=== PATIENT | female | born 1960 ===

== ENCOUNTER → 2018-06-13 20:54 | Outpatient (REF) | payer OTHER, SELFPAY ==
[2018-06-13 21:32] LABS: Add Manual Diff / Slide Review NO; Basophils Absolute Auto 0 /uL (0-100); Basophils Percent Auto 0.6 % (0-2); Eosinophils Absolute Auto 100 /uL (0-450); Eosinophils Percent Auto 1.1 % (2-4); Hematocrit 35.8 % (36-46); Lymphocytes Absolute Auto 2000 /uL (1100-4500); Lymphocytes Percent Auto 27.7 % (25-40); Mean Corpuscular HGB Conc 33.5 % (30-36); Mean Corpuscular Hemoglobin 29.6 PG (26-34); Mean Corpuscular Volume 88.4 fL (80-100); Monocytes Absolute Auto 400 /uL (0-900); Monocytes Percent Auto 5.8 % (3-14); Neutrophils Absolute Auto 4800 /uL (1500-7000); Neutrophils Percent Auto 64.8 % (50-75); Platelet Count 294 X10^3/uL (150-400); Red Blood Cell Count 4.05 X10^6/uL (4.0-5.2); Red Cell Distribution Width 12.3 % (11.6-14.8); White Blood Cell Count 7.4 X10^3/uL (4.5-11.0)
[2018-06-13 21:48] LABS: Alanine Aminotransferase 29 IU/L (9-52); Albumin 4.2 g/dL (3.5-5.0); Albumin Globulin Ratio 1.4 (1.0-2.8); Alkaline Phosphatase 90 U/L (38-126); Aspartate Aminotransferase 26 IU/L (14-36); BUN Creatinine Ratio 26.3 (6-22); Bilirubin Total 0.1 mg/dL (0.2-1.3); Blood Urea Nitrogen 21 mg/dL (7-17); Calcium 9.6 mg/dL (8.4-10.2); Carbon Dioxide 32 mmol/L (22-32); Chloride 98 mmol/L (98-107); Cholesterol 181 mg/dL (140-199); Estimated Glomerular Filt Rate > 60.0 mL/min (>60); Globulin 2.9 g/dL (1.7-4.1); Glucose 89 mg/dL (70-100); HDL Cholesterol 46 mg/dL (40-60); HEMOLYSIS < 15 (0-50); LDL Cholesterol Calculated 90 mg/dL (<100); Sodium 138 mmol/L (137-145); Total Protein 7.1 g/dL (6.3-8.2); Triglycerides 223 mg/dL (35-150)
[2018-06-13 21:58] LABS: Hemoglobin A1C% w Est Avg Glu 5.3 % (4.0-6.0); Vitamin D 25 Hydroxy (D3) 34.7 ng/mL (30.0-100.0)
[2018-06-13 22:12] LABS: Thyroid Stimulating Hormone 2.25 uIU/mL (0.47-4.68)
[2018-06-18 16:36] LABS: 18 kD IgG Band Nonreactive; 23 kD IgG Band Reactive; 28 kD IgG Band Nonreactive; 30 kD IgG Band Nonreactive; 39 kD IgG Band Reactive; 41 kD IgG Bands Reactive; 45 kD IgG Band Nonreactive; 58 kD IgG Band Nonreactive; 66 kD IgG Band Nonreactive; 93 kD IgG Bands Nonreactive
== END ==
LOC: LAB 20:54
PROVIDERS: Visit Provider Family Medicine
DX: Z00.00 Encounter for general adult medical examination without abnormal findings (principal); Z13.1 Encounter for screening for diabetes mellitus; Z13.220 Encounter for screening for lipoid disorders
CPT/HCPCS: 36415; 80053; 80061; 82306; 83036; 84443; 85025; 86618; 86790